=== PATIENT | female | born 1945 | race Caucasian/White ===

== ENCOUNTER 2022-10-13 06:20 | Day surgery (SDC) | payer OTHER ==
[2022-10-09 16:10] LABS: Absolute Lymphocytes (CBC) 1.6 K/uL (0.7-4.9); Hematocrit 38.6 % (36.0-45.0); Lymphocytes % 24.6 % (15.3-44.8); MCV 94.9 fL (80-100); RBC Red Blood Cell Count 4.07 M/uL (3.86-4.86)
[2022-10-09 16:16] LABS: Protime INR 0.85
--- NOTE | 2022-10-09 16:20 | RAD REPORT ---
EXAM DESCRIPTION: RAD - Chest Pa And Lat (2 Views) - 10/09/2022 4:10 pm CLINICAL HISTORY: Pre op pending trigger finger release Chest pain. COMPARISON: No comparisons TECHNIQUE: PA and lateral views of the chest were obtained. FINDINGS: The lungs are hyperexpanded compatible with COPD. Apical scarring noted on the right. The heart is upper limit of normal in size. No fracture or aggressive bony process. IMPRESSION: COPD without acute process identified. The USPSTF recommends annual screening for lung cancer with low-dose CT (LDCT) in adults aged 50 to 80 years who have a 20 pack-year smoking history and currently smoke or have quit within the past 15 years.
[2022-10-09 16:32] LABS: Potassium 3.3 mEq/L (3.5-5.1)
--- NOTE | 2022-10-11 12:34 | EKG ---
Test Date: 2022-10-09 Test Time: 15:43:39 Wash Box Operator: JAME MEASUREMENT RESULTS: Intervals: Rate: 53 MN: 176 QRSD: 74 QT: 446 QTc: 418 Taft: P: 86 MN: 176 QRS: 81 T: 80 INTERPRETIVE STATEMENTS: Sinus bradycardia Otherwise normal ECG No previous ECG available for comparison Electronically Signed On 10-11-22 12:33:11 CDT by Kailash Perez
[2022-10-13] MEDS ORDERED: Ringers Lactate 1,000 ML IV ONE (06:43)
[2022-10-13] MEDS ORDERED: LIDOCAINE 1% MPF 30 ML VIAL ONE (07:19)
[2022-10-13] MEDS ORDERED: propofoL 200 MG/20 ML VIAL IV ONE (07:19)
[2022-10-13] MEDS ORDERED: LIDOCAINE 2% MPF 5 ML VIAL ONE (07:19)
[2022-10-13] MEDS ORDERED: NS 0.9% VIAL 30 ML ONE (07:19)
[2022-10-13] MEDS ORDERED: FENTANYL CITR 100 MCG/2 ML ONE (07:20)
[2022-10-13] MEDS ORDERED: ONDANSETRON 4 MG/2 ML VIAL ONE (07:20)
[2022-10-13] MEDS: BUPIVACAINE 0.25% PF 10 ML VIAL ONE ×2 (07:39→08:28)
[2022-10-13] MEDS: CEFAZOLIN SODIUM 1 GM/VIAL ONE ×2 (07:39→08:15)
[2022-10-13 08:59] VITALS: TEMP 98.2
[2022-10-13 10:07] VITALS: BP 137/97; O2SAT 100
--- NOTE | 2022-10-14 13:13 | OP ---
Date of Procedure: 10/13/2022 Surgeon: Jaswinder Fisher MD Preoperative Diagnosis: Left small finger trigger digit. Postoperative Diagnosis: Left small finger trigger digit. Procedure Performed: Left small finger A1 alonzo release. Anesthesia: Magna block. Complications: None. Implants: None. Estimated Blood Loss: 2 cc. Complications: None. Indication For Procedure: Radha is a 77-year-old female, who presented to clinic with signs and sym ptoms consistent with left small finger trigger digit. The patient failed conservative treatment ankita sures including corticosteroid injection. The patient reported her symptoms interfered with her acti vities of daily living. I discussed with the patient at length risks and benefits associated with op erative and nonoperative treatment. She expressed understanding and elected to proceed with operativ e treatment. Description Of Procedure: After informed consent was obtained, the patient was identified in the pre operative holding area. The left small finger was marked. The patient was then brought back to the operating room, transferred to the operative table in a supine fashion, placed under Lacho block anest hesia. The left upper extremity was then prepped and draped in the usual sterile fashion. A time-ou t was initiated. The correct patient and procedure were confirmed and identified. The patient did r eceive preoperative prophylactic antibiotics. Approximately, a 1 cm longitudinal incision was made o junaid the A1 alonzo of the small finger. Dissection was then taken down to the alonzo with soft tissue retracted using Ragnell. A 15 blade was then used to incise the A1 alonzo. Portion of the tendon s asya was excised to minimize risk for recurrence. The flexor tendon was then brought out through th e incision and there was full excursion of the tendon without triggering noted. The wound was then i rrigated thoroughly with normal saline. Skin was approximated using a 5-0 Prolene. Sterile dressing s were applied. Tourniquet was let down. The patient was awakened and transferred to the PACU in st able condition. Postoperative Plan: The patient may be working on range of motion exercises and at the time she will be nonweightbearing. She will follow up in clinic in 7-10 days for suture removal. CV/MODL Voice ID: [id number] Report ID: [id number]
== END 2022-10-13 09:45 | disposition home or self-care (01) ==
LOC: OR 06:20
PROVIDERS: ATTEND Orthopaedic Surgery Sports Medicine
PROC: 0LN80ZZ Release Left Hand Tendon, Open Approach (ICD-10-PCS; principal; 2022-10-13 07:30)
DX: M65.352 Trigger finger, left little finger (principal)
CPT/HCPCS: 93005; 85025; 80048; 36415; 85610; 85730; 71046; 26055; A4216; J2704; J2001 ×2; J3010; J2405; J7120; J0690

== ENCOUNTER 2023-04-04 06:38 | Day surgery (SDC) | payer OTHER ==
[2023-03-29 11:32] LABS: Absolute Lymphocytes (CBC) 1.4 K/uL (0.7-4.9); Hematocrit 38.1 % (36.0-45.0); Lymphocytes % 25.3 % (15.3-44.8); MCV 94.4 fL (80-100); MPV 8.1 fL (7.6-11.3); Platelets 282 thou/uL (152-406); RBC Red Blood Cell Count 4.04 M/uL (3.86-4.86)
[2023-03-29 11:40] LABS: Protime INR 0.9
[2023-03-29 11:48] LABS: Potassium 4.2 mEq/L (3.5-5.1)
[2023-04-04] MEDS ORDERED: Ringers Lactate 1,000 ML IV ONE (06:56)
[2023-04-04] MEDS ORDERED: LIDOCAINE 2% MPF 5 ML VIAL ONE (07:11)
[2023-04-04] MEDS ORDERED: ONDANSETRON 4 MG/2 ML VIAL ONE (07:11)
[2023-04-04] MEDS ORDERED: KETOROLAC 30 MG/ML INJ ONE (07:11)
[2023-04-04] MEDS ORDERED: propofoL 200 MG/20 ML VIAL IV ONE (07:11)
[2023-04-04] MEDS ORDERED: FENTANYL CITR 100 MCG/2 ML ONE (07:12)
[2023-04-04] MEDS ORDERED: MIDAZOLAM HCL 2 MG/2 ML INJ ONE (07:12)
[2023-04-04] MEDS: CEFAZOLIN SODIUM 1 GM/VIAL ONE ×4 (07:49→08:15)
[2023-04-04] MEDS: BUPIVACAINE 0.25% PF 10 ML VIAL ONE ×5 (07:50→08:45)
[2023-04-04] MEDS ORDERED: EPHEDRINE SULF 50 MG/ML VIAL ONE (08:24)
--- NOTE | 2023-04-04 08:57 | P.BOP ---
Preoperative diagnosis: right trigger thumb Postoperative diagnosis: same Primary procedure: right thumb A1 alonzo release Staffing Manager: NONE,NONE Estimated blood loss: 2 cc Specimen: none Findings: see dictation Anesthesia: General Complications: None Implants: none Fluids & blood products: per anesthesia record; TT: 23 mins @ 300 mmHg Transferred to: Recovery Room Condition: Good
--- NOTE | 2023-04-04 09:01 | P.OP ---
Preoperative diagnosis: right trigger thumb Postoperative diagnosis: same Primary procedure: right thumb A1 alonzo release Anesthesia: general Estimated blood loss: 2 cc Specimen: none Findings: see dictation Operative Technique: Indication For Procedure: Radha is a 77-year-old female, who presented to clinic with signs and symptoms consistent with a right thumb trigger digit. The patient failed conservative treatment measures. The patient reported her symptoms interfered with her activities of daily living. I discussed with the patient at length risks and benefits associated with operative and nonoperative treatment. She expressed understanding and elected to proceed with operative treatment. Description Of Procedure: After informed consent was obtained, the patient was i dentified in the preoperative holding area. The right thumb was marked. The patient was then brought back to the operating room, transferred to the operative table in a supine fashion, placed under general anesthesia. The right upper extremity was then prepped and draped in the usual sterile fashion. A time-out was initiated. The correct patient and procedure were confirmed and identified. The patient did receive preoperative prophylactic antibiotics. The right upper extremity was exsanguinated and tourniquet was inflated to 250 mmHg. Approximately, a 1 cm horizontal incision was made over the A1 alonzo of the thumb at the flexion crease. Dissection was then taken down to the alonzo with soft tissue retracted using Ragnell. A 15 blade was then used to incise the A1 alonzo. Portion of the tendon sheath was excised to minimize risk for recurrence. The flexor tendon was then brought out through the incision and there was full excursion of the tendon without triggering noted. The wound was then irrigated thoroughly with normal saline. Skin was approximated using a 5-0 Prolene. Sterile dressings were applied. Tourniquet was let down. The patient was awakened and transferred to the PACU in stable condition. Postoperative Plan: The patient may be working on range of motion exercises and at the time she will be nonweightbearing. She will follow up in clinic in 7-10 days for suture removal. Complications: None Implants: none Fluids & blood products: per anesthesia record; TT: 23 mins @ 250 mmHg Transferred to: Recovery Room Condition: Good
[2023-04-04 12:19] VITALS: BP 155/85; TEMP 97; O2SAT 97
== END 2023-04-04 10:36 | disposition home or self-care (01) ==
LOC: OR 06:38
PROVIDERS: ATTEND Orthopaedic Surgery Sports Medicine
PROC: 0LN70ZZ Release Right Hand Tendon, Open Approach (ICD-10-PCS; principal; 2023-04-04 08:00)
DX: M65.311 Trigger thumb, right thumb (principal); I10 Essential (primary) hypertension
CPT/HCPCS: 85025; 80048; 36415; 85610; 85730; 26055; J2704; J2001; J2250; J3010; J2405; J7120; J0690